=== PATIENT | male | born 1945 | race Caucasian/White ===

== ENCOUNTER 2020-10-29 05:27 | Day surgery (SDC) | payer OTHER ==
[~2020-10-29] VITALS: Ht 170 cm; Wt 90.7 kg
[~2020-10-29 05:27] MED LIST: ALLOPURINOL300 MG PO; ASPIRIN EC81 M1 PO; CELEXA20 M1 PO; FOLIC ACID0.8 MG PO; IBUPROFEN400 MG PO; LEVOTHYROXINE50 MCG PO; LIPITOR 10MG TA10 MG PO; LOPRESSOR25 MG PO; LOSARTAN POTASS25 MG PO; MELOXICAM15 MG PO; OXYBUTYNIN CHLOR5 M1 PO; VITAMIN B-121000 MC1 PO
--- NOTE | 2020-10-29 10:39 | NUR ---
PT. REQUESTED OUTPT. AT [facility]. FIRST APPT. IS 10/31/20 @ 10:45 [facility] DELIVER A ROLLING WALKER UPON DISCHARGE.
[2020-10-29] MEDS ORDERED: PERCOCET 5-3251 EACH PO (10:42)
--- NOTE | 2020-10-29 15:41 | NUR ---
PT. SIGNED CHOICE FORM AND COPY GIVEN.
[2020-10-30 05:19] LABS: BASOPHIL 0.1 % (0-2); EOSINOPHIL 0.3 % (0-7); HCT 30.7 % (42.0-52.0); HGB 10.2 g/dl (13.2-18.0); LYMPHOCYTE 11.7 % (15-48); MCH 32.9 pg (25.0-31.0); MCHC 33.2 g/dL (32.0-36.0); MONOCYTE 10.5 % (0-12); MPV 10.6 fL (6.0-9.5); NEUTROPHIL 77.1 % (41-80); NRBC 0; PLT 154 K/uL (150-400); WBC 10.2 K/uL (4.0-10.5)
[2020-10-30 05:42] LABS: BUN/CREAT RATIO (CALC) 27.7 RATIO; CREATININE 0.83 mg/dL (0.67-1.17); POTASSIUM 4.7 mmol/L (3.5-5.1)
[2020-10-30] MEDS ORDERED: FEOSOL325 MG PO (12:00)
== END 2020-10-30 12:15 | disposition home or self-care (01) ==
LOC: FAS 05:27 → FOR 07:00 → FAS 10-30 12:15
PROVIDERS: Orthopaedic Surgery
DX: M16.12 Unilateral primary osteoarthritis, left hip (principal); E78.5 Hyperlipidemia, unspecified; I10 Essential (primary) hypertension; E03.9 Hypothyroidism, unspecified; M10.9 Gout, unspecified; Z79.82 Long term (current) use of aspirin; Z79.1 Long term (current) use of non-steroidal anti-inflammatories (NSAID); Z79.899 Other long term (current) drug therapy
CPT/HCPCS: 36415; 73501; 76000; 80048; 85025; 86850; 86900; 86901; 94010; 97161; 97166; 97530-GP; 97535; C1776; J0171; J0697; J1100; J1170; J1885; J2250; J2270; J2370; J2405; J2704; J2795; J3010; J7120